=== PATIENT | female | born 1965 | race Caucasian/White ===

== ENCOUNTER 2022-02-14 06:09 | Day surgery (SDC) | payer OTHER ==
[~2022-02-14 06:09] MED LIST: LACTATED RINGERS 1,000 ML IV SCH; LIDOCAINE 1% (10MG/ML) FOR IV START INTRADERMA PRN
[2022-02-14 06:41] VITALS: TEMP 97.8
[2022-02-14] MEDS ORDERED: LACTATED RINGERS 1,000 ML IV ONE (06:43)
[2022-02-14] MEDS ORDERED: fentaNYL (PF) 50 MCG/ML 2 ML AMP ONE (07:23)
[2022-02-14] MEDS ORDERED: PROPOFOL 10 MG/ML 20 ML VIAL IV ONE (07:23)
[2022-02-14] MEDS ORDERED: LIDOCAINE 2% INJ 20 MG/ML (2 ML VIAL) ONE (07:23)
[2022-02-14] MEDS ORDERED: MIDAZOLAM 2 MG/2 ML VIAL ONE (07:23)
--- NOTE | 2022-02-14 07:47 | P.PCN ---
Date of Procedure: 02/14/22 Procedure(s) Performed: Brief history: Patient is a pleasant 56-year-old white female scheduled for an elective upper endoscopy as well as colonoscopy as a part of evaluation of GERD and dysphagia to solids for the last 10 years duration. Lately her symptoms have been progressively getting worse and has almost on a daily basis. Often has difficulty swallowing with bread and meat. She denies any heartburn. Has prior history of colon polyps. Procedure performed: Esophagogastroduodenoscopy biopsy and dilation Colonoscopy Preoperative diagnosis: Intermittent dysphagia to solids History of colon polyps Anesthesia: MAC Procedure: After informed consent was obtained from the patient was brought into the endoscopy unit and IV sedation was administered by anesthesia under continuous monitoring. Initially upper endoscopy was done. The Olympus GF 160 video endoscope was inserted inserted into the mouth and esophagus intubated without any difficulty and was gradually advanced into the stomach and duodenum and carefully examined. The bulb and second part of the duodenum appeared normal. The scope was then withdrawn into the stomach adequately insufflated with air and upon careful examination the antrum and body, cardia and fundus appeared normal. The scope was then withdrawn into the esophagus. The GE junction was located at 35 cm to the incisors. Small hiatal hernia noted. There was a distal esophagus which are identified and this was dilated using 15 mm TTS balloon for 30 seconds. There was some mucosal tear oozing identified and hence further dilation was not performed. There were linear erosions in the distal esophagus consistent with LA grade B reflux esophagitis biopsies were done from the mid and distal esophagus. Rest of the esophagus appeared normal. Patient tolerated the procedure well. At this time the patient continued to remain sedation. Initial digital rectal examination was normal. Olympus CF 160 video colonoscope was then inserted into the rectum and gradually advanced to the cecum without any difficulty. Careful examination was performed as the scope was gradually being withdrawn. The prep was excellent. The cecum, ascending colon, transverse colon, descending colon, sigmoid colon and rectum appeared normal. Retroflexion was performed in the rectum and no lesions were noted. Patient tolerated the procedure well. Impression: 1. Upper endoscopy revealed distal esophageal stricture status post balloon dilation to 20 mm TTS balloon, LA grade a reflux esophagitis and a small hiatal hernia 2. Colonoscopy was within normal limits with no evidence of colorectal neoplasia Recommendations: Findings of this examination were discussed with the patient as well as her family. She was advised to use beer a clear liquid diet for lunch today. We'll start her on omeprazole 40 mg daily and was briefly educated about antireflux measures. She'll be seen in office in 3 months. Recommend repeat screening colonoscopy in 10 years.
[2022-02-14 08:06] VITALS: BP 109/73; PULSE 55; RESP 20
== END 2022-02-14 08:21 ==
LOC: ORWHC2ENDO 06:09
PROVIDERS: ATTEND Internal Medicine Gastroenterology
DX: Z12.11 Encounter for screening for malignant neoplasm of colon (principal); K21.00 Gastro-esophageal reflux disease with esophagitis, without bleeding; K22.2 Esophageal obstruction; R13.10 Dysphagia, unspecified; Z86.010 Personal history of colon polyps; Z79.899 Other long term (current) drug therapy
CPT/HCPCS: 88305; 88312; 45378; 43239; 43249; J2250; J3010; J2704; J2001